=== PATIENT | female | born 1950 | race Caucasian/White ===

== ENCOUNTER → 2023-10-09 10:27 | Outpatient (REF) | payer OTHER, SELFPAY | LOC: RAD 10:27 | PROVIDERS: ATTENDING PHYSICIAN Physician Assistant Medical | DX: E78.2 Mixed hyperlipidemia (principal); R06.02 Shortness of breath | CPT/HCPCS: 93017; 71046 ==

== ENCOUNTER 2024-12-04 06:17 | Day surgery (SDC) | payer OTHER, SELFPAY | END 2024-12-04 12:16 | disposition home or self-care (01) | LOC: GI 06:17 | PROVIDERS: ATTENDING PHYSICIAN Internal Medicine | DX: Z12.11 Encounter for screening for malignant neoplasm of colon (principal); D12.2 Benign neoplasm of ascending colon; D12.3 Benign neoplasm of transverse colon; K63.5 Polyp of colon; Z86.0100 Personal history of colon polyps, unspecified | CPT/HCPCS: 45385; 45380; 88305 ==